=== PATIENT | male | born 1945 | race Caucasian/White ===

== ENCOUNTER 2023-12-05 18:45 | Emergency (ER) | payer MEDICARE, SELFPAY ==
[2023-12-05 18:46] VITALS: BP 162/79; PULSE 61; RESP 10; TEMP 36.4; O2SAT 97
--- NOTE | 2023-12-05 19:31 | DI.RAD_ITS ---
Exam(s) XR ELBOW RT COMPLETE EXAM: XR ELBOW RT COMPLETE CLINICAL HISTORY: riht arm. TECHNIQUE: 2D digital imaging was performed. COMPARISON: No exams were available for comparison FINDINGS: Four views There is a mildly displaced fracture of the olecranon fossa which also involves the articular surface .. Joint effusion-hemarthrosis noted. Radial head and neck are intact Bone density normal. No osseous lesions IMPRESSION: Olecranon fracture. Joint effusion/hemarthrosis. DATA REPOSITORY: RADIATION DOSE DELIVERED:
--- NOTE | 2023-12-05 19:31 | DI.RAD_ITS ---
Exam(s) XR FOREARM RT EXAM: XR FOREARM RT CLINICAL HISTORY: right arm pain. TECHNIQUE: 2D digital imaging was performed. COMPARISON: No exams were available for comparison FINDINGS: Two views There is a mildly displaced fracture of the olecranon fossa which involves the articular surface. El bow joint effusion-hemarthrosis noted. No other fractures evident in the radius and ulna. Bone density normal. No osseous lesions. No radiopaque foreign bodies. There is no gas in the soft tissues IMPRESSION: Olecranon fracture proximal ulna. No other forearm fractures evident. DATA REPOSITORY: RADIATION DOSE DELIVERED:
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
[2023-12-05 20:28] VITALS: BP 150/74; PULSE 60; RESP 12; O2SAT 98
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
--- NOTE | 2023-12-06 07:24 | NUR.NOTE ---
Access chart to get the discharge diagnosis for [facility] billing. Nursing Note:
== END 2023-12-05 20:28 | disposition home or self-care (01) ==
PROVIDERS: Emergency Provider Emergency Medicine
DX: S52.021A Displaced fracture of olecranon process without intraarticular extension of right ulna, initial encounter for closed fracture (principal); M25.521 Pain in right elbow; Y93.01 Activity, walking, marching and hiking; W19.XXXA Unspecified fall, initial encounter
CPT/HCPCS: 24670; 99284; 73080; 73090; 99283